=== PATIENT | male | born 1945 | race Caucasian/White ===

== ENCOUNTER 2023-10-04 11:30 | Outpatient (AMB) | payer MEDICARE, SELFPAY ==
--- NOTE | 2023-10-04 11:46 | MHC.OFFWIV ---
Intake Vital Signs 10/04/23 11:47 Height 5 ft 7 in Weight 200 lb BMI 31.3 BP 126/70 Blood Pressure Location Rt brachial Position Sitting Pulse 120 H Pulse Source Pulse Oximeter Temp 98.6 F Temp Source Temporal Artery Scan Pulse Oximetry (%) 97 Intake Visit Reasons: EP headache cough sore throat Intake Note: pt is here for headache, cough, sore throat Patient Tobacco Use Status: Never used Tobacco Allergies No Known Allergies Allergy (Verified 10/04/23 11:47) Do you need a note to return to daycare/school/sports/work: No HPI HPI Comments History of Present Illness Details He presents with cold symptoms x 3 days Pt said feeling the same +headache, ST, cough without phlegm He denies fever or chills Okay appetite and feeling a little tired He tried tylenol and OTC meds as needed He said he is drinking plenty ST pain was worse PFSH Social History Patient Tobacco Use Status: Never used Tobacco Review of Systems Const Denies body aches, Denies chills and Denies fever(s) Eyes Denies blurry vision ENT Denies dizziness, Denies otalgia, Reports nasal congestion, Denies sinus pressure, Reports sore throat and Denies throat swelling Card Denies chest pain, Denies rapid heart rate and Denies dyspnea Resp Reports chest congestion, Reports cough and Denies dyspnea GI Denies abdominal pain Musc Denies myalgias Neuro Denies dizziness Aller/Immun Denies throat swelling Physical Exam Vital Signs: Last Vital Signs Temp 98.6 F 10/04/23 11:47 Pulse 120 H 10/04/23 11:47 BP 126/70 10/04/23 11:47 Pulse Ox 97 10/04/23 11:47 BMI result Body Mass Index 31.3 General: Non-toxic, NAD. Speaking full sentences. Skin: Warm dry throughout Eye: EOMI HENT: Airway patent. Uvula midline. Minimal pharyngeal erythema without exudates or edema. No RENEWALS REPRESENTATIVE. R canal cerumen. L canal clear, TM non-erythematous, non-bulging. No TM perforation or hemotympanum noted. Lymph: No lymphadenopathy Respiratory: CTA bilaterally. No wheezes, rales or rhonchi Cardiac: tachycardic (retook at 115bpm and regular). MSK: Full ROM extremities. Neurology: A/O. No aphasia or facial droop. Gait without abnormality Psych: Good mood and affect Assessment & Plan Assessment & Plan (1) Upper respiratory infection: Code(s): J06.9 - Acute upper respiratory infection, unspecified Qualifiers: URI type: unspecified viral URI Qualified Code(s): J06.9 - Acute upper respiratory infection, unspecified Plan: rsv/flu/covid swab obtained and sent Discussed fluid hydration and monitor HR Any CP, SOB, dizziness, palpitations etc go to ED [facility] for cough F/U with PCP in 1 week in not better Call with concerns Pt gave verbal understanding at this time and had no additional questions Orders: Orders SARS-CoV2/FLU/RSV Today J06.9 - Acute upper respiratory infection, unspecified Medications: New benzonatate 200 mg PO BID-TID PRN 14 caps 0RF cough Coding Level of Care Code New Pt Level 3 (70859) Diagnoses Viral upper respiratory tract infection J06.9 URI type: unspecified viral URI
[2023-10-04 11:47] VITALS: BP 126/70; PULSE 120; TEMP 37; O2SAT 97; BMI 31.3
== END 2023-10-04 12:40 | disposition home or self-care (01) ==
PROVIDERS: PCP Internal Medicine; Visit Provider Physician Assistant
DX: J06.9 Acute upper respiratory infection, unspecified (principal)
CPT/HCPCS: 99203

== ENCOUNTER 2023-10-04 13:47 | Outpatient (REF) | payer MEDICARE, SELFPAY ==
[2023-10-04 14:41] LABS: Influenza A PCR NEGATIVE (Negative); Influenza B PCR NEGATIVE (Negative); Resp Syncy Virus RNA Qual PCR NEGATIVE (Negative); SARS COV2 PCR INHOUSE NEGATIVE (Negative)
== END 2023-10-04 13:48 | disposition home or self-care (01) ==
LOC: HO.LNP 13:47
PROVIDERS: Visit Provider Physician Assistant
DX: J06.9 Acute upper respiratory infection, unspecified (principal)
CPT/HCPCS: 0241U